=== PATIENT | male | born 1950 | race Caucasian/White ===

== ENCOUNTER 2018-06-28 11:50 | Outpatient (CLI) | payer OTHER | END 2018-06-28 12:30 | disposition home or self-care (01) | LOC: NUCLEAR 11:50 | DX: I73.9 Peripheral vascular disease, unspecified (principal) ==

== ENCOUNTER 2022-11-21 16:37 | Emergency (ER) | payer OTHER ==
[~2022-11-21] VITALS: Ht 167.6 cm; Wt 72.6 kg
[2022-11-21] MEDS ORDERED: METFORMIN HCL850 M1 PO (17:02)
[2022-11-21] MEDS ORDERED: ASA325 MG PO (17:02)
[2022-11-21] MEDS ORDERED: ATORVASTATIN CA40 MG PO (17:02)
[2022-11-21] MEDS ORDERED: PLAVIX75 MG PO (17:03)
[2022-11-21] MEDS ORDERED: COZAAR25 MG PO (17:03)
[2022-11-21] MEDS ORDERED: TUSNEL LIQUID178 ML PO (19:30)
== END 2022-11-21 22:46 | disposition home or self-care (01) ==
LOC: ER 16:37
DX: I10 Essential (primary) hypertension (principal); Z20.822 Contact with and (suspected) exposure to COVID-19; E11.9 Type 2 diabetes mellitus without complications; Z79.84 Long term (current) use of oral hypoglycemic drugs